=== PATIENT | female | born 1960 | race American Indian/Alaskan Native ===

== ENCOUNTER 2016-10-15 11:40 | Emergency (ER) | payer OTHER ==
[2016-10-15 11:41] VITALS: BMI 24.1
[2016-10-15 12:00] VITALS: RESP 18; TEMP 98.9; O2SAT 99
--- NOTE | 2016-10-15 13:04 | C.PDOC ---
History Of Present Illness 55-year-old female, PMHx includes Asthma, presents to the emergency department with multiple complaints. Patient states she has been experiencing a non- productive cough x3 weeks, that is associated with a subjective fever. Secondary complaint is a non-traumatic deformity to the left-fifth digit of upper extremity x4 days. States she is unable to fully extend her finger. Denies numbness/weakness, nausea/vomiting, shortness of breath, chest pain, dizziness, or any other associated symptoms. No other complaints at this time. Denies Hx of smoking. Time Seen by Provider: 10/15/16 12:26 Chief Complaint (Nursing): Flu-like Symptoms History Per: Patient History/Exam Limitations: no limitations Onset/Duration Of Symptoms: Days Current Symptoms Are (Timing): Still Present Severity: Moderate Past Medical History Reviewed: Historical Data, Nursing Documentation, Vital Signs Vital Signs: Last Vital Signs Temp 98.9 F 10/15/16 11:56 Pulse 81 10/15/16 11:56 Resp 18 10/15/16 11:56 BP 105/60 10/15/16 11:56 Pulse Ox 99 10/15/16 13:13 - Medical History PMH: Asthma, Bronchitis, Gastritis, Hyperlipidemia Denies: Chronic Kidney Disease - [facility] Procedures COLONOSCOPY (07/03/13) ENDOSCP EXCISN OR DESTR OF LESION OR TIS URETHRA (06/20/13) RETROGRADE PYELOGRAM (06/20/13) TU DESTRUC BLADD LES NEC (06/20/13) Family History: States: No Known Family Hx - Social History Hx Tobacco Use: No Hx Alcohol Use: No Hx Substance Use: No - Immunization History Hx Tetanus Toxoid Vaccination: Yes Hx Influenza Vaccination: Yes Hx Pneumococcal Vaccination: No Review Of Systems Except As Marked, All Systems Reviewed And Found Negative. Constitutional: Positive for: Fever Respiratory: Positive for: Cough. Negative for: Sputum Gastrointestinal: Negative for: Nausea, Vomiting Musculoskeletal: Positive for: Other (L fifth finger pain) Physical Exam - Physical Exam Appears: Non-toxic, No Acute Distress Skin: Warm, Dry, No Rash Eye(s): bilateral: Normal Inspection, PERRL, EOMI Nose: Normal Oral Mucosa: Moist Lips: Normal Appearing Neck: Normal ROM, Supple Cardiovascular: Rhythm Regular, No Murmur Respiratory: Normal Breath Sounds, No Accessory Muscle Use, No Wheezing, Other ( No retractions) Extremity: Other (LEFT UPPER EXT: SWAN NECK DEFORMITY TO 5TH DIGIT) Pulses: Left Radial: Normal, Right Radial: Normal Neurological/Psych: Oriented x3, Normal Speech ED Course And Treatment O2 Sat by Pulse Oximetry: 99 Reevaluation Time: 15:48 Reassessment Condition: Improved Disposition Counseled Patient/Family Regarding: Studies Performed, Diagnosis, Need For Followup - Disposition Referrals: Semaj King MD [Staff Provider] - [facility] [Outside] [facility] [Outside] Disposition: HOME/ ROUTINE Disposition Time: 15:49 Condition: IMPROVED Prescriptions: predniSONE [Prednisone] 60 mg PO DAILY #12 tab Instructions: Jammed Finger (ED), Asthma (ED) Print Language: ARMENIAN - Clinical Impression Clinical Impression: [place]-neck deformity of finger, Asthma exacerbation - PA / ESCROW REPRESENTATIVE / Resident Statement MD/DO has reviewed & agrees with the documentation as recorded. - Scribe Statement The provider has reviewed the documentation as recorded by the Scribe (Reno Reyes) All medical record entries made by the Scribe were at my direction and personally dictated by me. I have reviewed the chart and agree that the record accurately reflects my personal performance of the history, physical exam, medical decision making, and the department course for this patient. I have also personally directed, reviewed, and agree with the discharge instructions and disposition. Orthopedic Care Application Of:: Finger Splint (L 5TH)
--- NOTE | 2016-10-15 13:31 | RAD ---
HISTORY: Cough COMPARISON: 11/12/2015. TECHNIQUE: Chest PA and lateral FINDINGS: LUNGS: The lungs are well inflated and clear. PLEURA: No significant pleural effusion identified. No pneumothorax apparent. CARDIOVASCULAR: Normal. OSSEOUS STRUCTURES: Within normal limits for the patient's age. VISUALIZED UPPER ABDOMEN: Normal. OTHER FINDINGS: None. IMPRESSION: No active pulmonary disease.
--- NOTE | 2016-10-15 13:31 | RAD ---
PROCEDURE: Left small finger radiographs. HISTORY: DEFORMITY COMPARISON: None. TECHNIQUE: AP radiograph of the left hand, as well as spot oblique and lateral images of left small finger were obtained. FINDINGS: LEFT SMALL FINGER: There is no acute fracture or bone destruction. There is extraction deformity at the distal interphalangeal joint of the 5th digit. Remainder of the left hand (as seen on the AP view) is grossly unremarkable. JOINTS: Normal. SOFT TISSUES: Normal. OTHER FINDINGS: None. IMPRESSION: No acute fracture. Fixed flexion deformity the 5th digit at the distal interphalangeal joint.
[2016-10-15] MEDS ORDERED: Albuterol-Ipratrop 3 mg / 0.5 (3 ml) UD ONE (13:37)
[2016-10-15] MEDS: Albuterol-Ipratrop 3 mg / 0.5 (3 ml) UD IH SCH ×3 (13:45→14:10)
[2016-10-15 16:22] VITALS: BP 110/66; PULSE 89
== END 2016-10-15 16:36 | disposition home or self-care (01) ==
LOC: C.ER 11:40
DX: J45.901 Unspecified asthma with (acute) exacerbation (principal); M20.032 Swan-neck deformity of left finger(s)